=== PATIENT | female | born 1975 | race Caucasian/White ===

== ENCOUNTER 2016-10-16 10:42 | Emergency (ER) | payer BC ==
[~2016-10-16] VITALS: Ht 162.6 cm; Wt 84.3 kg
[~2016-10-16 10:42] MED LIST: BCPILLS PO; LORA10TA51 PO; OXYC-57 PO; PROM1SUP19 PR; SUMA100T16 PO; SUMA6KIT2; VERAMYST SPRAY NAE; [UNRECOGNIZED DRUG - OTHER] NAE
[2016-10-16 10:53] VITALS: TEMP 36.7; Ht 162.6 cm; Wt 84.3 kg
[2016-10-16] MEDS ORDERED: HYDR-5688 PO (11:37)
[2016-10-16] MEDS ORDERED: CYCL5TAB PO (11:37)
--- NOTE | 2016-10-16 11:39 | EMERGENCY ROOM VISIT NOTE ---
History First contact with patient: 11:13 Chief Complaint: SHOULDER PAIN Stated Complaint: SHOULDER/NECK/ARM PAIN History of Present Illness The patient is a 41 year old female who presents to the Emergency Room via private vehicle accompanied by daughter with complaints of "shoulder/neck/arm pain". The patient states that back around August 16, she was cleaning windows reaching overhead with her right hand, when she developed pain in the scapular region on the right side. She states that she's been trying to deal with this through her family doctor with Flexeril and naproxen without relief. She states that at times it'll shoot down her arm and her neck. She denies any chest pain, shortness of breath, history of blood clots, smoking, hormone use, long bone fracture. Review of Systems A complete 6-point Review of Systems was discussed with the patient, with pertinent positives and negatives listed in the History of Present Illness. All remaining Review of Systems questions can be considered negative unless otherwise specified. Past Medical/Surgical History Medical Problems: (1) Acute sinusitis (2) Chronic pansinusitis (3) Dyslipidemia (4) Family history of renal stone (5) Hypertrophy of tonsils (6) Irritable colon (7) MIGRAINE UNSPECIFIED W/O INTRACT MGRN W/O STATUS MIGRAINOSUS (8) nephrolithias (9) TEMPOROMANDIBULAR JOINT DISORDERS, UNSPECIFIED Social History Smoking Status: Never Smoker Alcohol Use: none Marital Status: Occupation Status: employed Current/Historical Medications Scheduled Metformin Hcl (Glucophage), 500 MG PO BID Sertraline (Zoloft), 1 TAB PO DAILY Scheduled PRN Cyclobenzaprine Hcl (Flexeril), 1 TAB PO TID PRN for Muscle Spasms Hydrocodone/Acetaminophen 5MG/325MG (Latexo 5MG/325MG), 1-2 TABLET PO Q6 PRN for Pain Oxycodone/Acetaminophen 5MG/325MG (Percocet 5MG/325MG), 0 TAB PO Q4H PRN Allergies Coded Allergies: Cephalosporins (Verified Allergy, CEFACLOR ALLERGY, 02/12/12) Penicillins (Verified Allergy, 02/12/12) Physical Exam Vital Signs Date Time Temp Pulse Resp B/P (MAP) Pulse Ox O2 Delivery O2 Flow Rate FiO2 10/16/16 12:12 82 20 134/92 98 10/16/16 10:53 36.7 93 18 145/91 99 Room Air Physical Exam VITAL SIGNS - Vital signs and nursing notes were reviewed. Afebrile, hypertensive, not tachycardic and is saturating well on room air 99%. GENERAL -41-year-old female appearing her stated age who is in no acute distress. Communicates well with provider and answers questions appropriately. SKIN - Without rashes. No petechial rashes. The skin overlying the right scapula is unremarkable. No evidence of trauma. HEAD - NC/AT. NECK - Neck with FROM. Supple to palpation. No C-spine tenderness. There is slight tenderness to the superior right trapezius muscle, the location of the paraspinous musculature in the cervical region. LUNGS - Chest wall symmetric without accessory muscle use, intercostals retractions, or central cyanosis. Normal vesicular breath sounds CTA B/L. No wheezes, rales, or rhonchi appreciated. CARDIAC - RRR with S1/S2. No murmur, rubs, or gallops appreciated. EXTREMITIES - No clubbing or peripheral cyanosis. No pretibial edema present. She is neurovascularly intact in the right upper extremity. Negative empty can test. No evidence of acute or cuff injury. The right trapezius muscle tenderness is identified at the superior medial portion of the right scapula, and appears to be in a spasm. Tenderness is reproducible on examination. Range of motion with the neck flexed laterally to the left elicits tenderness in the trapezius muscle. +5/5 strength noted in UE/LE bilaterally. NEUROLOGIC - Cranial nerves II through XII grossly intact. Sensory intact to light touch throughout. Medical Decision & Procedures Medical Decision Patient was seen and evaluated as above. After obtaining a thorough history and physical examination it was evident the patient is likely experiencing a muscle strain/muscle spasm as this was identified upon palpation of the trapezius muscle. There is no chest pain or shortness of breath. She is PERC negative. She will be conservatively managed with Flexeril, pain meds, ice/ heat and follow-up with orthopedics. She is to return if worsening. She was educated upon worrisome symptoms which to return, had questions or dish, and was discharged home in good condition. She is to follow-up with her family doctor regarding the elevated blood pressure today. In the treatment of this patient controlled medication was utilized and therefore the [facility], Prescription Drug Monitoring Program website was utilized to look up this patient. No concerns were identified that would prohibit or alter my treatment decision. In the evaluation and treatment of this patient, the following differential diagnoses were considered: Shoulder Contusion, Shoulder Fracture, Shoulder Dislocation, Thoracic Outlet Syndrome, Adhesive Capsulitis, Rotator Cuff Tear, Proximal Clavicle Head Fracture, Apical Pneumonia, Pneumothorax, Hemothorax, or TB. [place] Drug Monitoring [place] Search Results: patient reviewed within database, no issues identified Impression Primary Impression: Trapezius muscle spasm Additional Impression: Trapezius muscle strain Departure Information Dispostion Home / Self-Care Condition GOOD Prescriptions Hydrocodone/Acetaminophen 5MG/325MG (Latexo 5MG/325MG) Tab 1-2 TABLET PO Q6 Y for Pain, #15 TAB For Initial Treatment Prov: Felix Foley PA-C 10/16/16 Cyclobenzaprine Hcl (FLEXERIL) 5 Mg Tab 1 TAB PO TID Y for Muscle Spasms for 10 Days, #30 TAB Prov: Felix Foley PA-C 10/16/16 Referrals Earl Lema M.D. (PCP) Aleksander Young MD Patient Instructions My [facility] Additional Instructions You have been treated in the Emergency Department for right shoulder blade/ trapezius muscle pain. You have been prescribed NORCO to be used for pain control. This is a narcotic medication. You cannot drive or consume alcohol while on this medicine. This medicine should only be used for pain that cannot be controlled with over-the- counter pain medicines. Please no tylenol with this!!! You have been prescribed Flexeril (cyclobenzaprine) 5mg tabs three times per day. Do NOT exceed 30 mg (6 tabs) per day. Take your first dose at bedtime as it can make you drowsy. Always take all medications as prescribed. For pain control, you can use the following [id number] medicines (if >12 yo): - Regular strength (325mg/tab) Tylenol (acetaminophen) 2 tabs every 4-6 hours as needed. Do not exceed 12 tablets in a 24 hour period. Avoid taking more than 3 grams (3000 mg) of Tylenol per day. This includes any other sources of acetaminophen you may take on a regular basis. - Regular strength (200 mg/tab) Advil (ibuprofen) 1-2 tabs every 4-6 hours as needed. Do not exceed a dose of 3200 mg per day. If this is an acute injury, ice can be applied to the area of pain for the first 3 days to help decrease pain and inflammation. After the first 3 days, a heating pad can be used over the area for continued soothing relief. You should schedule a follow-up appointment in 2-3 days with your Primary Care Provider for further evaluation and treatment of your back pain. I have also listed a number for orthopedic surgeon that I recommend following up with if your symptoms persist. Return to the Emergency Department if your current symptoms worsen despite treatment course outlined above, or if you develop any of the following symptoms : intractable pain despite aforementioned treatment course, loss of control of your bowel or bladder, numbness or tingling in your groin, or development of a fever. Please return the emergency department with any new/concerning symptoms. Problem Qualifiers
[2016-10-16] MEDS ORDERED: GLC/500 PO (11:47)
[2016-10-16] MEDS ORDERED: SERT-234 PO (11:47)
[2016-10-16 12:12] VITALS: BP 134/92; PULSE 82; O2SAT 98
== END 2016-10-16 12:14 | disposition home or self-care (01) ==
LOC: C.EDB 10:44 → C.EDC 12:14
DX: S46.911A Strain of unspecified muscle, fascia and tendon at shoulder and upper arm level, right arm, initial encounter (principal); X58.XXXA Exposure to other specified factors, initial encounter; M62.838 Other muscle spasm; E78.5 Hyperlipidemia, unspecified; K58.9 Irritable bowel syndrome, unspecified; Z87.442 Personal history of urinary calculi; Z79.84 Long term (current) use of oral hypoglycemic drugs; Z79.899 Other long term (current) drug therapy; Z88.0 Allergy status to penicillin; Z88.8 Allergy status to other drugs, medicaments and biological substances

== ENCOUNTER → 2016-10-27 | Outpatient (CLI) | payer BC ==
[~2016-10-27] MED LIST changes: -BCPILLS PO; +CYCL5TAB PO; +GLC/500 PO; +HYDR-5688 PO; -LORA10TA51 PO; -PROM1SUP19 PR; +SERT-234 PO; -SUMA100T16 PO; -SUMA6KIT2; -VERAMYST SPRAY NAE; -[UNRECOGNIZED DRUG - OTHER] NAE
--- NOTE | 2016-10-27 16:54 | DIAGNOSTIC IMAGING REPORT ---
C-SPINE ROUTINE 4 OR 5 VIEWS HISTORY: Pain M54.2 COMPARISON: None. FINDINGS: The cervical spine is visualized from C1 through the superior endplate of T1. There is no fracture. No subluxation. Mild degenerative intervertebral disc change C3-C4. Moderate degenerative change C5-C6. Mild osteophytic narrowing of the neuroforamina bilaterally at C6-C7 and to lesser extent C5-C6. Prevertebral soft tissues and the atlantodens interval are intact. IMPRESSION: Moderate degenerative change. No acute process. The above report was generated using voice recognition software. It may contain grammatical, syntax or spelling errors. Electronically signed by: Azam Beltran M.D. 10/27/2016 4:52 PM Dictated Date/Time: 10/27/2016 4:51 PM
== END | disposition home or self-care (01) ==
LOC: C.RADPV 16:06
PROVIDERS: ATTEND Chiropractor
DX: M50.31 Other cervical disc degeneration, high cervical region (principal)

== ENCOUNTER 2017-02-02 05:19 | Inpatient (IN) | payer BC ==
[2017-01-15 09:27] VITALS: BMI 31.0
--- NOTE | 2017-01-15 09:58 | PAT Medication Instructions ---
Service Date Jan 15, 2017. Current Home Medication List Albuterol Hfa (Ventolin Hfa), 2 PUFFS INH PRN Fluticasone Propionate (Flovent Hfa), 2 PUFFS INH BID PRN for PRN Gabapentin (Neurontin), 300 MG PO HS Metformin Hcl (Glucophage), 1,000 MG PO BID Sertraline (Zoloft), 1 TAB PO QAM Simvastatin (Zocor), 80 MG PO QAM Medication Instructions For Your Scheduled Surgery - Hold the following medications 48 hours prior to surgery: Metformin Hcl (Glucophage), 1,000 MG PO BID - Take the following medications the morning of surgery with a sip of water: Sertraline (Zoloft), 1 TAB PO QAM Simvastatin (Zocor), 80 MG PO QAM Albuterol Hfa (Ventolin Hfa), 2 PUFFS INH PRN (if needed) Fluticasone Propionate (Flovent Hfa), 2 PUFFS INH BID PRN for PRN (if needed) - Take the following medications as scheduled the night before surgery: Albuterol Hfa (Ventolin Hfa), 2 PUFFS INH PRN (if needed) Fluticasone Propionate (Flovent Hfa), 2 PUFFS INH BID PRN for PRN (if needed) Gabapentin (Neurontin), 300 MG PO HS If you have any questions please call us at [phone] or [phone] or [phone]
[2017-01-15 10:30] LABS: BASO % 0.2 %; BASO ABS # 0.02 K/uL (0-0.2); COMPLETE YES; EOS % 1.9 %; HEMATOCRIT 42.1 % (37-47); IG% 0.2 %; LYMPH % 28.8 %; LYMPH ABS # 2.67 K/uL (1.2-3.4); MEAN CELL VOLUME 85.1 fL (80-100); MEAN CORPUSCULAR HEMOGLOBIN 28.9 pg (25-34); MEAN PLATELET VOLUME 10.9 fL (7.4-10.4); MONO % 4.9 %; PLATELET COUNT 254 K/uL (130-400); RED BLOOD COUNT 4.95 M/uL (4.2-5.4); WHITE BLOOD COUNT 9.27 K/uL (4.8-10.8)
[2017-01-15 10:31] LABS: URINE APPEARANCE CLOUDY (CLEAR); URINE BILIRUBIN NEG (NEG); URINE COLOR YELLOW; URINE EPITHELIAL CELL AUTO >30 /lpf (0-5); URINE NITRITE NEG (NEG); URINE SPECIFIC GRAVITY 1.021 (1.000-1.030); UROBILINOGEN NEG (NEG)
[2017-01-15 10:32] LABS: MANUAL MICROSCOPIC REQUIRED? NO; REVIEW REQ? YES
[2017-01-15 10:38] LABS: PROTHROMBIN TIME (PATIENT) 10.4 SECONDS (9.0-12.0)
--- NOTE | 2017-01-15 10:39 | DIAGNOSTIC IMAGING REPORT ---
CHEST 2 VIEWS ROUTINE CLINICAL HISTORY: PAT preoperative evaluation COMPARISON STUDY: 04/14/2011 FINDINGS: The bones soft tissues and hemidiaphragms are normal. The cardiomediastinal silhouette is normal. The lungs are clear. The pulmonary vasculature is normal. IMPRESSION: Negative chest. The above report was generated using voice recognition software. It may contain grammatical, syntax or spelling errors. Electronically signed by: Azam Beltran M.D. 01/15/2017 10:38 AM Dictated Date/Time: 01/15/2017 10:38 AM
[2017-01-15 12:00] LABS: BUN/CREATININE RATIO 11.1 (10-20); CALCIUM 9.2 mg/dl (8.5-10.1); CREATININE 0.75 mg/dl (0.60-1.20)
[~2017-02-02] VITALS: Ht 162.6 cm; Wt 83.4 kg
[2017-02-02] VITALS (16 sets, daily range): BP systolic 112–136; BP diastolic 72–86; PULSE 74–137; TEMP 36.8–37.2; O2SAT 93–97; BMI 31.0
[~2017-02-02 05:19] MED LIST changes: -CYCL5TAB PO; +FLVHFA110 INH; +GABA-113 PO; -HYDR-5688 PO; -OXYC-57 PO; +SIMV80TA2 PO; +VNTHFA/IN INH
[2017-02-02] MEDS ORDERED: SCOPOLAMINE 1.5 MG TDSY TD ONE (05:29)
[2017-02-02] MEDS ORDERED: NSS 1000ML IV SCH (06:00)
[2017-02-02] MEDS ORDERED: CLINDAMYCIN 600 MG/54 ML D5W 54 ML IV SCH (06:00)
[2017-02-02] MEDS ORDERED: LACTATED RINGER'S 1000ML 1,000 ML IV SCH (06:00)
[2017-02-02] MEDS ORDERED: MIDAZOLAM HCL 1 MG/ML 2ML VIAL ONE (06:54)
[2017-02-02] MEDS ORDERED: FENTANYL CITRATE INJ 50 MCG/1 ML 2 ML VIAL ONE (06:54)
[2017-02-02] MEDS ORDERED: GELATIN SPONGE SZ 100 ONE (07:08)
[2017-02-02] MEDS ORDERED: THROMBIN FOR SOLN 20000 UNIT KIT ONE (07:08)
--- NOTE | 2017-02-02 07:08 | History & Physical Bridge Note ---
H&P Re-Evaluation Bridge Note: I have examined the patient, reviewed the History & Physical and in the interval since the performance of the History & Physical I have noted the following changes of clinical significance: No changes noted
[2017-02-02] MEDS ORDERED: BACITRACIN 50000 UNIT VIAL ONE (07:09)
[2017-02-02] MEDS ORDERED: BUPIVACAINE/EPINEPHRINE 0.5% MPF 1:200,000 30 ML VIAL ONE (07:09)
--- NOTE | 2017-02-02 07:14 | History and Physical ---
History & Physical Date Feb 02, 2017. Chief Complaint neck and arm pain History of Present Illness The patient is a 41 year old female with complaints of neck and arm pain Past Medical/Surgical History Medical Problems: (1) Acute sinusitis (2) Chronic pansinusitis (3) Dyslipidemia (4) Family history of renal stone (5) Hypertrophy of tonsils (6) Irritable colon (7) MIGRAINE UNSPECIFIED W/O INTRACT MGRN W/O STATUS MIGRAINOSUS (8) nephrolithias (9) TEMPOROMANDIBULAR JOINT DISORDERS, UNSPECIFIED Additional History Hepatic Disease: No Endocrine Disorder: No Kidney Disease: No Hypertension: No Heart Disease: No Bleeding Tendencies: No Infectious Diseases: No Allergies Coded Allergies: Cephalosporins (Verified Allergy, Unknown, CEFACLOR ALLERGY-HIVES, ) Guaifenesin (Verified Allergy, Unknown, RASH, 02/02/17) Methylparaben (Verified Allergy, Unknown, RASH, 02/02/17) Penicillins (Verified Allergy, Unknown, UNKNOWN, 02/02/17) Phenylephrine (Verified Allergy, Unknown, RASH, 02/02/17) Propylparaben (Verified Allergy, Unknown, RASH, 02/02/17) Home Medications Scheduled Albuterol Hfa (Ventolin Hfa), 2 PUFFS INH PRN Gabapentin (Neurontin), 300 MG PO HS Metformin Hcl (Glucophage), 1,000 MG PO BID Sertraline (Zoloft), 1 TAB PO QAM Simvastatin (Zocor), 80 MG PO QAM Scheduled PRN Fluticasone Propionate (Flovent Hfa), 2 PUFFS INH BID PRN for PRN Physical Examination Skin: warm/dry Eyes: normal inspection ENT: normal ENT inspection Head: normocephalic Neck: supple Respiratory/Chest: lungs clear Cardiovascular: regular rate, rhythm Abdomen / GI: normal bowel sounds Back: normal inspection Extremities: normal inspection Neurologic/Psych: + pertinent finding (numbness, weakness) Diagnosis cord compression c5-6, c6-7 ASA Classification: ASA Class I Plan of Treatment acdf c5-6, c6-7
[2017-02-02] MEDS ORDERED: DEXAMETHASONE SOD INJ 4 MG/ML VIAL ONE (08:52)
[2017-02-02] MEDS ORDERED: GLYCOPYRROLATE INJ 0.2 MG/ML VIAL ONE (08:52)
[2017-02-02] MEDS ORDERED: ONDANSETRON INJ 2 MG/ML 2 ML VIAL ONE (08:52)
[2017-02-02] MEDS ORDERED: LIDOCAINE HCL 2% 2 ML VIAL (20MG/ML) ONE (08:52)
[2017-02-02] MEDS ORDERED: ROCURONIUM BROMIDE 10 MG/ML 5 ML VIAL IV ONE (08:52)
[2017-02-02] MEDS ORDERED: NEOSTIGMINE METHYLSULFATE 5 MG/5 ML SYR ONE (08:52)
[2017-02-02] MEDS ORDERED: PROPOFOL IV EMULSION 10 MG/ML 20 ML VIAL IV ONE (08:52)
[2017-02-02] MEDS ORDERED: HYDROmorphone INJ 2 MG/ML SYR/VIAL ONE (08:57)
--- NOTE | 2017-02-02 10:11 | [facility] Post Operative Brief Note ---
Immediate Operative Summary Operative Date Feb 02, 2017. Pre-Operative Diagnosis cord compression c5-6, c6-7 Post-Operative Diagnosis cord compression c5-6, c6-7 Procedure(s) Performed C5-C6, C6-C7 Anterior Cervical Discectomy and Fusion with Iliac Crest Bone Graft Surgeon Dr. Pascual House Calls Nurse Surgeon(s) ALEX Sky Estimated Blood Loss 20ML Findings cord compression Specimens none per surgeon Complication(s) None Disposition Recovery Room / PACU
[2017-02-02] MEDS ORDERED: NALOXONE HCL 0.4 MG/1 ML VIAL/CARP IV PRN ×2 (10:15→10:45)
[2017-02-02] MEDS ORDERED: ALBUTEROL HFA 8 GM INHALER INH PRN (10:15)
[2017-02-02] MEDS ORDERED: ONDANSETRON INJ 2 MG/ML 2 ML VIAL IV PRN ×2 (10:15→10:45)
[2017-02-02] MEDS ORDERED: FLUTICASONE HFA 110MCG INHALER INH PRN (10:15)
[2017-02-02] MEDS ORDERED: ACETAMINOPHEN IV 100 ML IV PRN (10:15)
[2017-02-02] MEDS ORDERED: LORAZEPAM INJ 0.5 MG in SYRINGE 0.75 ML IV PRN (10:15)
--- NOTE | 2017-02-02 10:16 | DIAGNOSTIC IMAGING REPORT ---
SPINE ONE VIEW, ANY LEVEL HISTORY: 41 years-old Female ACDF C5-C6 C6-7 status post fusion at C5-C7 COMPARISON: Cervical spine radiograph 10/27/2016 TECHNIQUE: 3 spot fluoroscopic images of the cervical spine were obtained utilizing 11.1 seconds fluoroscopy time FINDINGS: Status post anterior fusion at C5-C6 and C6-C7. Alignment appears satisfactory. IMPRESSION: Fluoroscopic assistance as above. Please see operative report for further details. The above report was generated using voice recognition software. It may contain grammatical, syntax or spelling errors. Electronically signed by: Brian Nazario M.D. 02/02/2017 10:15 AM Dictated Date/Time: 02/02/2017 10:09 AM
[2017-02-02] MEDS ORDERED: NovoLIN-R INSULIN PER UNIT CHARGE ONE (10:28)
[2017-02-02] MEDS ORDERED: NovoLIN-R INSULIN PER UNIT CHARGE IV STA (10:31)
[2017-02-02] MEDS ORDERED: HYDROmorphone INJ 0.5 MG/0.5 ML SYR ONE (10:39)
[2017-02-02] MEDS ORDERED: PROMETHAZINE HCL INJ 12.5 MG in SODIUM CHLORIDE 0.9% 50ML 50 ML IV PRN (10:45)
[2017-02-02] MEDS ORDERED: LABETALOL HCL IV 5 MG/ML 20ML IV PRN (10:45)
[2017-02-02] MEDS ORDERED: ATROPINE SULFATE 0.1 MG/ML 5ML SYR IV PRN (10:45)
[2017-02-02] MEDS ORDERED: HYDROmorphone INJ 1 MG/ML SYR IV PRN (10:45)
[2017-02-02] MEDS ORDERED: EpHEDrine SULFATE INJ 50 MG/ML AMP IV PRN (10:45)
[2017-02-02] MEDS ORDERED: IV FLUIDS COMPLETED PRN (11:00)
--- NOTE | 2017-02-02 11:14 | Anesthesiology Progress Note ---
Anesthesia Post Op Note Date & Time Feb 02, 2017 at 11:14 Vital Signs Pain Intensity: 3 Vital Signs Past 12 Hours Date Time Temp Pulse Resp B/P (MAP) Pulse Ox O2 Delivery O2 Flow Rate FiO2 02/02/17 10:59 36.8 98 20 133/80 94 Nasal Cannula 2 Oxymask 02/02/17 10:52 100 20 02/02/17 10:52 101 20 94 02/02/17 10:51 135/80 02/02/17 10:47 94 20 02/02/17 10:47 94 20 94 02/02/17 10:46 101 21 02/02/17 10:46 100 21 121/81 93 02/02/17 10:41 91 19 140/81 97 02/02/17 10:41 91 19 02/02/17 10:36 90 22 148/81 97 02/02/17 10:36 90 22 02/02/17 10:31 81 19 140/84 97 02/02/17 10:31 81 19 02/02/17 10:26 81 19 02/02/17 10:26 82 19 130/85 98 02/02/17 10:21 89 22 02/02/17 10:21 89 22 139/90 97 02/02/17 10:16 91 20 133/92 97 02/02/17 10:16 91 20 02/02/17 10:13 136/86 02/02/17 10:11 13 02/02/17 10:11 36.3 93 18 136/86 (101) 95 Oxymask 10 02/02/17 10:11 13 02/02/17 05:50 36.9 84 16 136/82 96 Room Air Notes Mental Status: alert / awake / arousable, participated in evaluation Pt Amnestic to Procedure: Yes Nausea / Vomiting: adequately controlled Pain: adequately controlled Airway Patency, RR, SpO2: stable & adequate BP & HR: stable & adequate Hydration State: stable & adequate Anesthetic Complications: no major complications apparent
[2017-02-02] MEDS ORDERED: SODIUM CHLORIDE 0.9% 1000ML 1,000 ML IV SCH ×2 (12:00→22:15)
--- NOTE | 2017-02-02 12:16 | OPERATIVE REPORT ---
DATE OF OPERATION: 02/02/2017 PREOPERATIVE DIAGNOSIS: Cord compression of C5-C6, C6-C7 of cervical. POSTOPERATIVE DIAGNOSIS: Same. PROCEDURE: Include a Gl[employer] procedure implants called Coalition placed at C5-C6 preceded by an anterior cervical discectomy and decompression of spinal cord at C5-C6 and C6-C7, iliac crest structural autograft. SURGEON: Dr. Pascual. AWNING SPREADER: Casper Bolivar PA-C. COMPLICATIONS: Zero. BLOOD LOSS: Less than 20. DESCRIPTION OF PROCEDURE: The patient was taken to the operating room, a general intubated anesthetic provided to the patient, kept supine. Malloy catheter administered. A formal timeout time out obtained. We made a transverse skin incision over the C6 vertebrae dissecting the second soft tissue, put in a deep self-retaining retractor handheld. We did formal discectomies at C5-C6 and C6-C7. I was pleased with the visibility and the decompression. We then irrigated. We went to the iliac crest, harvested a structural autograft to fill in the Coalition device. This was done by a separate fascial, skin incision as well, taking the autograft from the left crest. We then selected Coalition devices, impacted them with bone and placed in the vacated it discectomy sites at C6-C7 and C5-C6. We initially used 14 mm screws. We perceived 2 of screws to be too long, we changed those out and put in 12 mm screws. Cross table lateral images looked appropriate. We irrigated, closed over layers and over a [place] drain. Sterile dressings applied. The patient returned to recovery room satisfactory and stable. No apparent complications. I attest to the content of the Intraoperative Record and any orders documented therein. Any exception s are noted below.
[2017-02-02] MEDS: HYDROmorphone INJ 0.5 MG/0.5 ML SYR IV PRN ×2 (15:12→20:50)
[2017-02-02] MEDS ORDERED: TRAM-10 PO (16:06)
[2017-02-02] MEDS ORDERED: ATOR-26 PO (16:06)
[2017-02-02] MEDS ORDERED: GLC5 PO (16:08)
[2017-02-02] MEDS ORDERED: GLUCOSE 40% GEL 15 GM TUBE PO PRN (16:15)
[2017-02-02] MEDS ORDERED: DEXTROSE 50% 50 ML SYR IV PRN (16:15)
[2017-02-02] MEDS ORDERED: GLUCAGON FOR INJ 1 MG VIAL SQ PRN (16:15)
[2017-02-02] MEDS ORDERED: GLUCOSE 10 TABS/TUBE PO PRN (16:15)
[2017-02-02] MEDS: CLINDAMYCIN IV 600 MG in DEXTROSE 5% 50ML 50 ML IV SCH ×2 (16:29→23:30)
--- NOTE | 2017-02-02 16:47 | Medical Consult ---
Consultation Date of Consultation: Feb 02, 2017. Attending Physician: Hemanth Pascual DO Reason for Consultation: Medical management History of Present Illness Pt is 41 y/o F with PMH DMII, hyperlipidemia, anxiety, depression, migraine seen in medical consult for management diabetes after C5-C6 anterior cervical discectomy and decompression of spinal cord C5-C6 & C6-C7 with iliac crest structural autograft by Dr Pascual today. Pt states having some pain to neck, was medicated just previous to my evaluation and reports starting to have decreased pain. Has urinary catheter in place. Reports last BM yesterday. Reports has sensation bilateral arms/hands and legs/feet and denies extremity pain or paresthesias. Denies N/V. Pt on metformin, was rx glipizide one month ago but hasn't started it yet. Reports her morning fasting blood sugar ~low 200' s. Didn't have metformin yesterday or today. Denies fever/chills, diaphoresis, N /V/D/C, GARCIA, dizziness, CP, SOB, orthopnea, palpitations, cough, choking, abdominal pain, extremity edema, rashes. Past Medical/Surgical History Medical Problems: (1) Acute sinusitis Status: Chronic (2) Anxiety Status: Chronic (3) Chronic pansinusitis Status: Chronic (4) Depression Status: Chronic (5) DM type 2 (diabetes mellitus, type 2) Status: Chronic (6) Dyslipidemia Status: Chronic (7) Family history of renal stone Status: Chronic (8) Hypertrophy of tonsils Status: Chronic (9) Irritable colon Status: Chronic (10) MIGRAINE UNSPECIFIED W/O INTRACT MGRN W/O STATUS MIGRAINOSUS Status: Chronic (11) TEMPOROMANDIBULAR JOINT DISORDERS, UNSPECIFIED Status: Chronic Surgical Problems: (1) History of endometrial ablation Status: Resolved (2) Hx of sinus surgery Status: Resolved Family History Asthma Diabetes mellitus FH: CAD (coronary artery disease) Hypertension Social History Smoking Status: Never Smoker Smokeless Tobacco Use: No Alcohol Use: occasionally Drug Use: none Marital Status: Housing Status: lives with family Occupation Status: employed Allergies Coded Allergies: Cephalosporins (Verified Allergy, Unknown, CEFACLOR ALLERGY-HIVES, ) Guaifenesin (Verified Allergy, Unknown, RASH, 02/02/17) Methylparaben (Verified Allergy, Unknown, RASH, 02/02/17) Penicillins (Verified Allergy, Unknown, UNKNOWN, 02/02/17) Phenylephrine (Verified Allergy, Unknown, RASH, 02/02/17) Propylparaben (Verified Allergy, Unknown, RASH, 02/02/17) Current Inpatient Medications Current Inpatient Medications Medications (Trade) Dose Ordered Sig/Marina Route Start Time Stop Time Status Last Admin Dose Admin Clindamycin Phosphate 54 ml @ 100 mls/hr PREOP IV 02/02/17 06:00 02/02/17 18:00 02/02/17 07:21 100 MLS/HR Acetaminophen 100 ml @ 400 mls/hr Q8H PRN IV 02/02/17 10:15 03/04/17 10:14 Hydromorphone HCl (Dilaudid Inj) 0.5mg IV for moder... Q3H PRN IV 02/02/17 10:15 02/16/17 10:14 02/02/17 15:12 1 MG Ondansetron HCl (Zofran Inj) 4 mg Q6 PRN IV 02/02/17 10:15 03/04/17 10:14 Clindamycin Phosphate 600 mg/ Dextrose 54 ml @ 100 mls/hr Q8H IV 02/02/17 16:00 02/03/17 08:33 Lorazepam 0.5 mg/ Syringe 1 ml @ 1 mls/min Q8H PRN IV 02/02/17 10:15 03/04/17 10:14 Sodium Chloride 1,000 ml @ 80 mls/hr [id number] IV 02/02/17 12:00 02/03/17 10:09 02/02/17 13:08 80 MLS/HR Oxycodone HCl (Roxicodone Immediate Rel Tab) 5mg for pain scale 4-6 1... Q4H PRN PO 02/02/17 10:15 02/16/17 10:14 Naloxone HCl (Narcan Inj) 0.1 mg Q5M PRN IV 02/02/17 10:15 03/04/17 10:14 Albuterol (Ventolin Hfa Inhaler) 2 puffs DAILY PRN INH 02/02/17 10:15 03/04/17 10:14 Gabapentin (Neurontin Cap) 300 mg HS PO 02/02/17 21:00 03/04/17 20:59 Sertraline HCl (Zoloft Tab) 100 mg QAM PO 02/03/17 09:00 03/05/17 08:59 Miscellaneous (Iv Fluids Completed) 1 ea PRN PRN N/A 02/02/17 11:00 02/02/18 10:59 Atorvastatin Calcium (Lipitor Tab) 80 mg DAILY PO 02/03/17 09:00 03/05/17 08:59 Review of Systems Constitutional: No fever, No chills, No sweats, No weight loss, No weakness Eyes: No eye pain, No redness ENT: No unusual epistaxis, No nasal symptoms Respiratory: No cough, No wheezing, No shortness of breath, No hemoptysis Cardiovascular: No chest pain, No orthopnea, No PND, No edema, No palpitations Abdomen: No pain, No nausea, No vomiting, No diarrhea, No constipation, No GI bleeding Musculoskeletal: + problem reported (see HPI) Genitourinary - Female: No dysuria, No urinary frequency, No urinary urgency, No urinary incontinence, No urinary retention, No hematuria Neurologic: + problem reported (see HPI) Hematologic / Lymphatic: No clotting problems Integumentary: No rash, No itch Physical Exam Date Time Temp Pulse Resp B/P (MAP) Pulse Ox O2 Delivery O2 Flow Rate FiO2 02/02/17 16:05 Nasal Cannula 2.0 02/02/17 14:50 37.0 105 16 131/84 (100) 96 02/02/17 14:19 102 16 119/81 (94) 02/02/17 12:48 104 16 117/77 (90) 95 2.0 02/02/17 12:31 Nasal Cannula 02/02/17 12:21 113 16 93 Nasal Cannula 1.0 02/02/17 12:05 37.0 115 16 127/83 (98) 93 Humidified Oxygen 2.0 02/02/17 11:40 37.0 106 20 118/79 93 Humidified Oxygen 2.0 02/02/17 11:40 93 Humidified Oxygen 2.0 02/02/17 11:40 37.0 106 20 118/79 (92) 93 Humidified Oxygen 2.0 02/02/17 11:16 127/79 02/02/17 11:13 108 20 95 02/02/17 11:13 109 20 02/02/17 11:11 128/81 02/02/17 11:08 105 21 95 02/02/17 11:08 105 21 02/02/17 11:06 131/75 02/02/17 11:03 99 18 95 02/02/17 11:03 100 18 02/02/17 11:01 133/80 02/02/17 10:59 36.8 98 20 133/80 94 Nasal Cannula 2 Oxymask 02/02/17 10:58 97 18 02/02/17 10:58 97 18 94 02/02/17 10:56 129/74 02/02/17 10:53 101 19 02/02/17 10:53 101 19 93 02/02/17 10:52 100 20 02/02/17 10:52 101 20 94 02/02/17 10:51 135/80 02/02/17 10:47 94 20 02/02/17 10:47 94 20 94 02/02/17 10:46 101 21 02/02/17 10:46 100 21 121/81 93 02/02/17 10:41 91 19 140/81 97 02/02/17 10:41 91 19 02/02/17 10:36 90 22 148/81 97 02/02/17 10:36 90 22 02/02/17 10:31 81 19 140/84 97 02/02/17 10:31 81 19 02/02/17 10:26 81 19 02/02/17 10:26 82 19 130/85 98 02/02/17 10:21 89 22 02/02/17 10:21 89 22 139/90 97 02/02/17 10:16 91 20 133/92 97 02/02/17 10:16 91 20 02/02/17 10:13 136/86 02/02/17 10:11 13 02/02/17 10:11 36.3 93 18 136/86 (101) 95 Oxymask 10 02/02/17 10:11 13 02/02/17 05:50 36.9 84 16 136/82 96 Room Air General Appearance: WD/WN, no apparent distress, + pertinent finding (lying supine at approx 45 degrees HOB elevation, with cervical collar on ) Head: normocephalic, atraumatic Eyes: normal inspection, EOMI, sclerae normal ENT: hearing grossly normal, pharynx normal, + pertinent finding (mucous membranes moist) Neck: trachea midline, + pertinent finding (in cervical collar, surgical dressing in place anterior neck) Respiratory/Chest: chest non-tender, lungs clear, normal breath sounds, no respiratory distress, no accessory muscle use Cardiovascular: no murmur, + tachycardia (104) Abdomen/GI: normal bowel sounds, non tender, soft Extremities/Musculoskelatal: normal inspection, no calf tenderness, normal capillary refill, no pedal edema, non-tender, + pertinent finding (sensation to light touch intact, strong equal pedal pushes/pulls, strong equal job lithographer strength) Neurologic/Psych: alert, normal mood/affect, oriented x 3 Skin: normal color, warm/dry, + pertinent finding (dressing in place left hip) Laboratory Results Last 24 Hours Test 02/02/17 05:40 02/02/17 10:21 02/02/17 11:02 Bedside Glucose 254 mg/dl 309 mg/dl 275 mg/dl Assessment & Plan Pt post op S/P C5-C6 anterior cervical discectomy & decompression of spinal cord C5-C6, C6-C7 by Dr Pascual today -pain management per ortho -wound management per ortho -PT/OT as appropriate -DVT prophylaxis per ortho -incentive spirometry -monitor H&H for acute blood loss anemia -cbc, prp in am DM II A1c: 9.0 on 01/07/17. -hold metformin -hold glipizide -NovoLog sliding scale -continue to monitor -recommend diabetic diet when pt able to advance diet per ortho HYPERLIPIDEMIA Lipid panel on 12/05/16: Total chol.: 199, LDL: 89, HDL: 41, Tri -continue atorvastatin DEPRESSION/ANXIETY Stable -continue Zoloft DVT PROPHYLAXIS -per ortho DISPOSITION -admitted med surg -Full Code -Follows with Dr Lema for routine care Pt was seen with Dr Lunsford. See addendum Pt will be seen by Dr Triplett for continuation of care. Agree with above h and P.Briefly 41F is s/p cervical spine surgery. Tolerated procedure fine. Has pain at surgery site. has sore throat.Afebrile. Denies sob or chest pain. No nausea. 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
[2017-02-02] MEDS ORDERED: COUGH DROP (SUGAR FREE) LOZ 24 LOZ/1 BOX PO PRN (17:00)
[2017-02-02] MEDS ORDERED: NURSING VERBAL MED ORDER ONE (17:00)
[2017-02-02] MEDS ORDERED: INSULIN ASPART 100 UNITS/ML 3 ML PEN SC SCH (17:15)
[2017-02-02] MEDS ORDERED: METFORMIN HCL 500 MG TAB PO SCH (17:45)
[2017-02-02] MEDS: OXYCODONE HCL IR 5 MG TAB (IMMEDIATE RELEASE) PO PRN (17:59)
[2017-02-02] MEDS: GABAPENTIN 300 MG CAP PO SCH (20:54)
[2017-02-02] MEDS ORDERED: LEVALBUTEROL/IPRATROPIUM NEB INH PRN (21:00)
[2017-02-02 21:14] LABS: COMPLETE YES; HEMATOCRIT 36.4 % (37-47); IG% 0.3 %; LYMPH % 5.7 %; LYMPH ABS # 0.73 K/uL (1.2-3.4); MEAN CELL VOLUME 83.3 fL (80-100); MEAN CORPUSCULAR HEMOGLOBIN 29.5 pg (25-34); MEAN CORPUSCULAR HGB CONC 35.4 g/dl (32-36); MEAN PLATELET VOLUME 10.9 fL (7.4-10.4); MONO % 4.4 %; NEUT % 89.6 %; PLATELET COUNT 240 K/uL (130-400); RED BLOOD COUNT 4.37 M/uL (4.2-5.4); WHITE BLOOD COUNT 12.86 K/uL (4.8-10.8)
[2017-02-02 21:24] LABS: PARTIAL THROMBOPLASTIN RATIO 0.9
[2017-02-02] MEDS ORDERED: INSULIN ASPART 100 UNITS/ML 3 ML PEN SC ONE (21:30)
[2017-02-02] MEDS ORDERED: IPRATROPIUM BROMIDE NEB SOLN 0.02% 2.5 ML VIAL INH PRN (21:30)
[2017-02-02] MEDS ORDERED: SODIUM CHLORIDE 0.9% 500ML 500 ML IV ONE (21:30)
[2017-02-02] MEDS ORDERED: INSULIN GLARGINE SOLOSTAR 100 UNITS/ML 3 ML PEN SC ONE (21:30)
[2017-02-02] MEDS ORDERED: LEVALBUTEROL 1.25MG/0.5ML NEB INH PRN (21:30)
[2017-02-02 21:38] LABS: BUN/CREATININE RATIO 9.1 (10-20); CALCIUM 8.7 mg/dl (8.5-10.1); CREATININE 0.81 mg/dl (0.60-1.20); MAGNESIUM 1.4 mg/dl (1.8-2.4); POTASSIUM 4.1 mmol/L (3.5-5.1)
[2017-02-02 21:48] LABS: ALB/GLOB RATIO 1.1 (0.9-2); THYROID STIMULATING HORMONE 0.229 uIu/ml (0.300-4.500)
[2017-02-02] MEDS: MAGNESIUM SULFATE 1GM / D5W 1 GM in PREMIXED IN D5W 100 ML IV SCH ×2 (22:17→23:29)
[2017-02-03] VITALS (21 sets, daily range): BP systolic 106–124; BP diastolic 71–85; PULSE 70–99; TEMP 36.4–37.2; O2SAT 88–98; Ht 162.6 cm; Wt 83.4 kg
[2017-02-03] MEDS: OXYCODONE HCL IR 5 MG TAB (IMMEDIATE RELEASE) PO PRN ×5 (00:15→20:04)
[2017-02-03] MEDS: MAGNESIUM SULFATE 1GM / D5W 1 GM in PREMIXED IN D5W 100 ML IV SCH (00:40)
[2017-02-03] MEDS ORDERED: SODIUM CHLORIDE 0.9% 1000ML 1,000 ML IV ONE (01:00)
[2017-02-03 06:50] LABS: ESTIMATED AVERAGE GLUCOSE 217 mg/dl; HA1C FLAG Normal (Normal)
[2017-02-03] MEDS: CLINDAMYCIN IV 600 MG in DEXTROSE 5% 50ML 50 ML IV SCH (07:27)
--- NOTE | 2017-02-03 07:37 | Anesthesiology Progress Note ---
Anesthesia Post Op Note Date & Time Feb 03, 2017 at 07:37 Vital Signs Pain Intensity: 3.0 Vital Signs Past 12 Hours Date Time Temp Pulse Resp B/P (MAP) Pulse Ox O2 Delivery O2 Flow Rate FiO2 02/03/17 06:34 36.5 84 16 124/84 95 Room Air 02/03/17 04:35 36.6 84 16 106/73 95 Nasal Cannula 2.0 Humidified Oxygen 02/03/17 04:08 86 16 96 Nasal Cannula 1.0 02/03/17 02:35 36.8 84 16 112/73 96 Nasal Cannula 2.0 Humidified Oxygen 02/03/17 00:35 36.8 86 16 109/73 96 Nasal Cannula 2.0 Humidified Oxygen 02/03/17 00:06 82 16 96 Nasal Cannula 1.0 02/02/17 20:35 36.8 135 16 121/75 94 Nasal Cannula 2.0 Humidified Air 02/02/17 20:30 37.2 137 18 120/83 95 Humidified Oxygen 2.0 02/02/17 20:19 98 16 95 Nasal Cannula 1.0 Notes Mental Status: alert / awake / arousable, participated in evaluation Pt Amnestic to Procedure: Yes Nausea / Vomiting: adequately controlled Pain: adequately controlled Airway Patency, RR, SpO2: stable & adequate BP & HR: stable & adequate Hydration State: stable & adequate Anesthetic Complications: no major complications apparent
[2017-02-03 07:57] LABS: HEMATOCRIT 35.8 % (37-47); MEAN CELL VOLUME 83.8 fL (80-100); MEAN CORPUSCULAR HGB CONC 34.6 g/dl (32-36); MEAN PLATELET VOLUME 10.9 fL (7.4-10.4); PLATELET COUNT 244 K/uL (130-400); RED BLOOD COUNT 4.27 M/uL (4.2-5.4); WHITE BLOOD COUNT 10.13 K/uL (4.8-10.8)
--- NOTE | 2017-02-03 08:00 | ORTHOPEDICS PROGRESS NOTE ---
DATE: 02/03/2017 SUBJECTIVE: Alert, oriented, still on ice chips. No chest pain, shortness of breath. 36.5 temperature, blood pressure 124/84. Moves all extremities. No neurological deficits. ASSESSMENT: 2-level anterior cervical discectomy and fusion, fairly rigorous surgery done just yesterday morning. DISPOSITION: Will slowly advance her diet. This morning we will try to get up and ambulatory and tentative discharge tomorrow morning.
[2017-02-03 08:28] LABS: BUN/CREATININE RATIO 10.7 (10-20); CALCIUM 8.2 mg/dl (8.5-10.1); CREATININE 0.53 mg/dl (0.60-1.20); MAGNESIUM 2.2 mg/dl (1.8-2.4); POTASSIUM 3.7 mmol/L (3.5-5.1)
[2017-02-03] MEDS ORDERED: SIMVASTATIN 80 MG TAB PO SCH (09:00)
[2017-02-03] MEDS ORDERED: INSULIN GLARGINE SOLOSTAR 100 UNITS/ML 3 ML PEN SC SCH (09:00)
[2017-02-03] MEDS: ATORVASTATIN 40 MG TAB PO SCH (09:04)
[2017-02-03] MEDS: SERTRALINE HCL 100 MG TAB PO SCH (09:04)
[2017-02-03] MEDS: INSULIN ASPART 100 UNITS/ML 3 ML PEN SC SCH ×4 (09:09→21:04)
[2017-02-03] MEDS: INSULIN GLARGINE SOLOSTAR 100 UNITS/ML 3 ML PEN SC SCH ×2 (09:10→21:04)
--- NOTE | 2017-02-03 12:51 | Discharge Instructions ---
Discharge Instructions Date of Service Feb 03, 2017. Admission Reason for Admission: Cervical Stenosis, Disc Herniation Discharge Discharge Diagnosis / Problem: same Discharge Goals Goal(s): Improve function Activity Recommendations Activity Limitations: as noted below Lifting Limitations: until after follow-up appointment Exercise/Sports Limitations: until after follow-up appointment May Resume Sexual Activity: after follow-up appointment Shower/Bathe: keep incision dry . Instructions / Follow-Up Instructions / Follow-Up MEDICATIONS: Please take your prescriptions as instructed at your pre-op appointment. SPECIAL CARE: The following information is intended to answer some of the common questions and concerns regarding your surgery. Each patient is an individual and receives individual counselling throughout the course of treatment, from diagnosis to surgery all the way through recovery. What follows is not an exhaustive list, but should be a useful guide to some of the common questions and concerns patients have regarding their surgeries. These are not provided to keep you from calling us; rather, they give you something accurate and concrete to reference as you recover from your procedure. If you need us, we are available to you. As always, if you are not sure about something, call us at [phone]. MEDICAL EMERGENCIES: For these conditions, call 911 or go to your local hospital-based Emergency Department - not [facility] or equivalent. * Paralysis * Severe chest pain or difficulty breathing * Swelling or redness of either leg Spine procedures can be rather complex and though complications are rare, they do occur. In such cases, effective advice regarding emergency situations cannot always be addressed over the telephone. You may be referred to the emergency department for more effective management of your problem. Activity Limitations: It is important to give your body time to heal, so please limit your activities : * In general, don't do anything that moves your spine too much. You should avoid contact sports, twisting or heavy lifting while you recover. * 5-10 pounds is all you should attempt to lift. * You should not plan on driving for approximately 3 weeks and you should avoid traveling more than 30-45 minutes at a time. Longer trips should be broken down with walking breaks spaced appropriately. * Physical therapy is not usually required. * Walking and good posture practices will help you recover and regain your function. * Avoid straining or sudden changes in position. * In general, the goal is to take it easy and recover. Don't cause any new problems. Just relax. Showers: * Do not take a bath, use a Jacuzzi or hot tub or otherwise submerge your incision. * It is usually safe to take a shower 4-5 days after your surgery. * Your incision does not require any special creams or ointments. * Simply clean it with soap and water, dry and re-dress with a clean bandage afterwards. Incision: * Keep incision clean, dry and protected until your first follow-up appointment. * Some amount of drainage and redness is normal. Any drainage should be fairly clear and not have a foul odor. * If you feel anything is wrong or you have excessive drainage, please call us. * Your stitches and april will be removed 10-14 days after your surgery. At the time of your first post-op visit. * Neck surgeries are typically closed with a suture underneath the skin. The steri-strips over the incision should be maintained until we see you in the office. Bracing: * You may be provided with a back or neck brace to encourage good posture and prevent injury. It will remind you not to do too much as you heal and will alert others to the fact that you have had a surgery. * Back braces may be removed for showers and when you are resting at home. They must be worn when you are walking around for any period of time or for travel. * For neck surgery, you will likely be provided with two cervical collars. The soft collar ([place] or foam rubber) is worn most commonly throughout the day and while sleeping. The plastic collar (provided at the hospital) is for showering/bathing. * Except while eating, collars should remain in place. More specifically, bracing is provided for a purpose and should be worn. * Please obtain your brace or collars prior to your operation and bring them to the hospital with you on the day of surgery. * You should also bring your collars to your post-op appointment with Dr. Pascual. You should always take good care of your body and practice healthy habits, especially following surgery. You should: * Follow your doctor's treatment plan * Sit and stand properly with good posture (ears over shoulders, shoulders over hips) Don't slouch * Learn to lift correctly * Exercise regularly (low-impact aerobic exercise is especially good, but check with your doctor first) * Generally, be up and walking for 5-10 minutes at a time at least 3-4 times per day from the day you get home * Increasing walking to tolerance until you can walk for 20-30 minutes at a time * Attain and maintain a healthy body weight * Eat healthy foods ( a well-balanced, low-fat diet rich in fruits and vegetables) and get enough calcium * Avoid excessive use of alcohol When to call our office - If you notice any of the following: * Increased pain not relieve by pain medicine * Fevers greater then 100 degrees F, chills or flu symptoms * Increased redness around incision * Drainage from the incision that is not clear * Any foul smelling drainage * Swelling or fluid collection beneath the skin Miscellaneous: * In the hospital, you may be given a walker or cane for support while walking. These are temporary needs and are intended to prevent injuries due to falls. You may discontinue them when you feel strong and steady enough on your feet. * Sleep in a comfortable position. We find that many patients find a lounge chair or recliner with several pillows to be beneficial in the early post-operative period. * The support stockings should be used for 7-10 days and may be discontinued when you are back to walking more and conducting usual household activities. No problem is insignificant. We are here to help you and get you well. Contact us at [phone]. Definitions: Foraminotomy: If part of the disc or a bone spur (osteophyte) is pressing on a nerve as it leaves the vertebra (through an exit called the foramen), a foraminotomy may be done. Otomy means "to make an opening." A foraminotomy is making the opening of the foramen larger, so the nerve can exit without being compressed. Laminotomy: Similar to the foraminotomy, a laminotomy makes a larger opening, this time in your bony plate protecting your spinal canal and spinal cord (the lamina). The lamina may be pressing on your nerve, so the surgeon may make more room for the nerves using a laminotomy. Laminectomy: Sometimes, a laminotomy is not sufficient. The surgeon may need to remove all or part of the lamina. This procedure is called a laminectomy. This can often be done at many levels without any harmful effects. Current Hospital Diet Patient's current hospital diet: Full Liquid Diet, Diabetes Type 2 Diet Discharge Diet Recommended Diet: Diabetes Type 2 Diet Procedures Procedures Performed: C5-C6, C6-C7 Anterior Cervical Discectomy and Fusion with Iliac Crest Bone Graft Pending Studies Studies pending at discharge: no Laboratory Results Hemoglobin A1c Test 02/02/17 20:59 Range/Units Estimated Average Glucose 217 mg/dl Hemoglobin A1c 9.2 H 4.5-5.6 % Medical Emergencies . Who to Call and When: Medical Emergencies: If at any time you feel your situation is an emergency, please call 911 immediately. . Non-Emergent Contact Non-Emergency issues call your: Surgeon Call Non-Emergent contact if: your pain is concerning you . "Provider Documentation" section prepared by Hemanth Pascual. . VTE Core Measure Inpt VTE Proph given/why not?: Treatment not indicated
[2017-02-03] MEDS: HYDROmorphone INJ 0.5 MG/0.5 ML SYR IV PRN ×3 (12:59→21:55)
--- NOTE | 2017-02-03 19:03 | Progress Note ---
Internal Med Progress Note Date of Service: Feb 03, 2017. Provider Documentation: SUBJECTIVE: sitting in the chair comfortably afebrile has pain at surgery site no sob 'no nausea OBJECTIVE: Vital Signs-as noted below Exam: General-alert and oriented. not in distress ENT-Normal hearing Neck-In Neck collar Lungs-Cta b/l no wheezing or crackles Heart-S1 and S2 heard regular No murmurs Abdomen-benign Extremities-No edema No erythema Neuro-alert and awake moves extremities Lab data as noted below. ASSESSMENT & PLAN: Pt post op S/P C5-C6 anterior cervical discectomy & decompression of spinal cord C5-C6, C6-C7 by Dr Pascual POD#1 management as per ortho DM II A1c: 9.0 on 01/07/17. holding metformin holding glipizide On NovoLog sliding scale will monitor HYPERLIPIDEMIA Lipid panel on 12/05/16: Total chol.: 199, LDL: 89, HDL: 41, Tri on atorvastatin DEPRESSION/ANXIETY Stable on Zoloft DVT PROPHYLAXIS per ortho DISPOSITION per ortho Vital Signs: Date Time Temp Pulse Resp B/P (MAP) Pulse Ox O2 Delivery O2 Flow Rate FiO2 02/03/17 16:00 36.9 16 109/72 (90) 94 Room Air 1.0 02/03/17 16:00 95 Room Air 02/03/17 15:15 84 16 94 Room Air 02/03/17 14:51 36.9 87 18 109/72 (84) 94 Room Air 02/03/17 11:40 95 16 94 Nasal Cannula 1.0 02/03/17 11:36 37.2 94 18 110/71 (84) 95 Room Air 02/03/17 09:20 37.0 99 17 115/75 95 Room Air 02/03/17 07:53 37.0 74 18 123/85 (98) 93 Room Air 02/03/17 07:37 83 16 98 Nasal Cannula 1.0 02/03/17 07:20 16 94 Room Air 02/03/17 07:20 94 Room Air 02/03/17 06:34 36.5 84 16 124/84 95 Room Air 02/03/17 04:35 36.6 84 16 106/73 95 Nasal Cannula 2.0 Humidified Oxygen 02/03/17 04:08 86 16 96 Nasal Cannula 1.0 02/03/17 02:35 36.8 84 16 112/73 96 Nasal Cannula 2.0 Humidified Oxygen 02/03/17 00:35 36.8 86 16 109/73 96 Nasal Cannula 2.0 Humidified Oxygen 02/03/17 00:06 82 16 96 Nasal Cannula 1.0 02/02/17 20:35 36.8 135 16 121/75 94 Nasal Cannula 2.0 Humidified Air 02/02/17 20:30 37.2 137 18 120/83 95 Humidified Oxygen 2.0 02/02/17 20:19 98 16 95 Nasal Cannula 1.0 02/02/17 19:15 Nasal Cannula 1.0 02/02/17 19:05 37.0 101 18 127/82 (97) 96 Nasal Cannula 1.0 Lab Results: Results Past 24 Hours Test 02/02/17 20:32 02/02/17 20:58 02/02/17 20:59 02/03/17 07:16 Range/Units Bedside Glucose 292 70-90 mg/dl Activated Partial Thromboplast Time 23.3 21.0-31.0 SECONDS Partial Thromboplastin Ratio 0.9 Sodium Level 133 136 136-145 mmol/L Potassium Level 4.1 3.7 3.5-5.1 mmol/L Chloride Level 99 101 98-107 mmol/L Carbon Dioxide Level 22 26 21-32 mmol/L Anion Gap 12.0 8.0 3-11 mmol/L Blood Urea Nitrogen 7 6 7-18 mg/dl Creatinine 0.81 0.53 0.60-1.20 mg/dl Est Creatinine Clear Calc Drug Dose 93.6 143.0 ml/min Estimated GFR () 103.1 134.8 Estimated GFR (Non- 89.0 116.3 BUN/Creatinine Ratio 9.1 10.7 10-20 Random Glucose 274 171 70-99 mg/dl Calcium Level 8.7 8.2 8.5-10.1 mg/dl Magnesium Level 1.4 2.2 1.8-2.4 mg/dl Total Bilirubin 0.4 0.2-1 mg/dl Aspartate Amino Transf (AST/SGOT) 15 15-37 U/L Alanine Aminotransferase (ALT/SGPT) 52 12-78 U/L Alkaline Phosphatase 40 45-117 U/L Total Protein 7.0 6.4-8.2 gm/dl Albumin 3.6 3.4-5.0 gm/dl Globulin 3.4 2.5-4.0 gm/dl Albumin/Globulin Ratio 1.1 0.9-2 Thyroid Stimulating Hormone (TSH) 0.229 0.300-4.500 uIu/ml Free Thyroxine 1.04 0.80-1.60 ng/dl White Blood Count 12.86 10.13 4.8-10.8 K/uL Red Blood Count 4.37 4.27 4.2-5.4 M/uL Hemoglobin 12.9 12.4 12.0-16.0 g/dL Hematocrit 36.4 35.8 37-47 % Mean Corpuscular Volume 83.3 83.8 80-100 fL Mean Corpuscular Hemoglobin 29.5 29.0 25-34 pg Mean Corpuscular Hemoglobin Concent 35.4 34.6 32-36 g/dl Platelet Count 240 244 130-400 K/uL Mean Platelet Volume 10.9 10.9 7.4-10.4 fL Neutrophils (%) (Auto) 89.6 % Lymphocytes (%) (Auto) 5.7 % Monocytes (%) (Auto) 4.4 % Eosinophils (%) (Auto) 0.0 % Basophils (%) (Auto) 0.0 % Neutrophils # (Auto) 11.52 1.4-6.5 K/uL Lymphocytes # (Auto) 0.73 1.2-3.4 K/uL Monocytes # (Auto) 0.57 0.11-0.59 K/uL Eosinophils # (Auto) 0.00 0-0.5 K/uL Basophils # (Auto) 0.00 0-0.2 K/uL RDW Standard Deviation 39.3 39.4 36.4-46.3 fL RDW Coefficient of Variation 13.0 13.1 11.5-14.5 % Immature Granulocyte % (Auto) 0.3 % Immature Granulocyte # (Auto) 0.04 0.00-0.02 K/uL Estimated Average Glucose 217 mg/dl Hemoglobin A1c 9.2 4.5-5.6 % Test 02/03/17 07:56 02/03/17 11:49 02/03/17 16:55 Range/Units Bedside Glucose 182 155 153 70-90 mg/dl
[2017-02-03] MEDS: GABAPENTIN 300 MG CAP PO SCH (21:01)
[2017-02-04] VITALS (13 sets, daily range): BP systolic 116–131; BP diastolic 78–85; PULSE 84–102; TEMP 36.4–36.8; O2SAT 91–96
[2017-02-04] MEDS: HYDROmorphone INJ 0.5 MG/0.5 ML SYR IV PRN ×2 (01:17→05:54)
--- NOTE | 2017-02-04 07:49 | DISCHARGE SUMMARY ---
She is improved, stable. Minimal complaints. No shortness of breath, chest pain or confusion. Vital signs stable, afebrile. ASSESSMENT: Status post cervical spine reconstruction, doing well short run. DISPOSITION: Instructions, precautions, dressings changed, home. She has instructions for home care from the office and here in the hospital to see her back in approximately 2 weeks. Medication she has at home for pain.
[2017-02-04] MEDS: SERTRALINE HCL 100 MG TAB PO SCH (09:00)
[2017-02-04] MEDS: ATORVASTATIN 40 MG TAB PO SCH (09:00)
[2017-02-04] MEDS: INSULIN ASPART 100 UNITS/ML 3 ML PEN SC SCH ×2 (09:04→13:04)
[2017-02-04] MEDS: INSULIN GLARGINE SOLOSTAR 100 UNITS/ML 3 ML PEN SC SCH (09:05)
[2017-02-04] MEDS: OXYCODONE HCL IR 5 MG TAB (IMMEDIATE RELEASE) PO PRN (10:13)
== END 2017-02-04 15:15 | disposition home or self-care (01) | DRG 30 ==
LOC: C.ACU 05:19 → C.3E 07:36 → ENRESERV 11:03 → OBSVTOIN 02-03 12:49
PROVIDERS: ADMIT Orthopaedic Surgery Orthopaedic Surgery of the Spine; ATTEND Orthopaedic Surgery Orthopaedic Surgery of the Spine
PROC: 0RG20A0 Fusion of 2 or more Cervical Vertebral Joints with Interbody Fusion Device, Anterior Approach, Anterior Column, Open Approach (ICD-10-PCS; principal; 2017-02-02 07:15)
PROC: 0QB30ZZ Excision of Left Pelvic Bone, Open Approach (ICD-10-PCS; principal; 2017-02-02 07:15)
PROC: 0RB30ZZ Excision of Cervical Vertebral Disc, Open Approach (ICD-10-PCS; principal; 2017-02-02 07:15)
DX: G95.20 Unspecified cord compression (principal); E11.9 Type 2 diabetes mellitus without complications; E78.5 Hyperlipidemia, unspecified; F32.9 Major depressive disorder, single episode, unspecified; F41.9 Anxiety disorder, unspecified; Z79.899 Other long term (current) drug therapy; Z79.84 Long term (current) use of oral hypoglycemic drugs; Z87.442 Personal history of urinary calculi; Z83.3 Family history of diabetes mellitus; Z84.1 Family history of disorders of kidney and ureter; Z82.49 Family history of ischemic heart disease and other diseases of the circulatory system; Z82.5 Family history of asthma and other chronic lower respiratory diseases